=== PATIENT | female | born 1940 | race Caucasian/White ===

== ENCOUNTER 2023-06-10 18:58 | Inpatient (IN) | payer OTHER, SELFPAY ==
[2023-06-10] VITALS (27 sets, daily range): BP systolic 106–135; BP diastolic 56–95; PULSE 87–102; RESP 16–34; TEMP 37.3; O2SAT 78–100
--- NOTE | ~2023-06-10 | CT_ITS ---
EXAMINATION: CT brain wo con DATE: 06/10/2023 20:05 INDICATION: AMS . TECHNIQUE: Computed tomography (CT) of the head was performed without intravenous contrast. The mA wa s adjusted according to patient size. Iterative reconstruction technique was employed. The dose-lengt h product was 1210.67 mGy-cm. COMPARISON: None. FINDINGS: Exam mildly motion limited. No acute intracranial hemorrhage or extra-axial fluid collection. No hydrocephalus, mass, or herniation. No acute ischemic infarct. Unremarkable dural venous sinus attenuation. No acute osseous abnormality. The aerated spaces are clear. Mild atrophy and chronic white matter change. Atherosclerotic intracranial calcification. Focal old b ilateral basal ganglia lacunar infarcts. IMPRESSION: No acute intracranial process. Reviewed, dictated and finalized at location K.
--- NOTE | ~2023-06-10 | CT_ITS ---
EXAMINATION: CT abdomen pelvis wo con DATE: 06/10/2023 19:59 INDICATION: abdominal pain TECHNIQUE: Computed tomography (CT) of the abdomen and pelvis was performed without intravenous contr ast. Automated exposure control and iterative reconstruction technique were employed. The dose-length product was 1531.05 mGy-cm. COMPARISON: None. FINDINGS: Motion artifact in the lungs and upper abdomen. Lower thorax: Septal thickening. Scattered groundglass opacities. Multiple calcified granulomas. Aort ic, mitral, and coronary artery calcifications. Dilated central pulmonary arteries as can be seen wit h pulmonary arterial hypertension. Small hiatal hernia. Mild cardiomegaly. Liver: Normal. Biliary/Gallbladder: Gallbladder is absent. 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 Pancreatic atrophy. Spleen: Normal. Adrenals:No mass. Kidneys: Right renal ectopia. Calcification in the posterior aspect of the right kidney, difficult to measure due to motion artifact. GI tract: No small or large bowel dilation. Appendix not visualized. Diverticulosis without diverticu litis. Asymmetric wall edema/thickening of the distal rectum/anus. Mesentery/Peritoneum: No ascites, mass, or free air. Retroperitoneum: No mass. Atherosclerotic abdominal aortic and/or arterial calcifications. IVC filter . Pelvis: Pelvic organs are within normal limits. Soft Tissues: Broad-based umbilical hernia/diastasis, with mild herniation of fat and small bowel, no obstruction. Bones: No acute osseous finding. Severe degenerative changes in the spine and right hip IMPRESSION: Mild interstitial edema. 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 Distal rectal/anal wall thickening may represent proctitis or a rectal mass. Correlate with physical exam findings and consider referral for proctoscopy. Reviewed, dictated and finalized at location K. IMPRESSION: Mild interstitial edema. 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 Distal rectal/anal wall thickening may represent proctitis or a rectal mass. Co rrelate with physical exam findings and consider referral for proctoscopy.
--- NOTE | ~2023-06-10 | XR_ITS ---
EXAMINATION: XR chest 1V portable Exam Date/Time: 06/10/2023 20:05 CDT HISTORY: tachypnea Comparison: 10/16/2016, CT abdomen and pelvis 06/10/2023. RESULT: Lines, tubes, and devices: None. Lungs and pleura: Low lung volumes. Scattered diffuse reticular opacities. Cardiomediastinal silhouette: Dilated central pulmonary arteries. Cardiomegaly. Other: No acute osseous or upper abdominal finding. IMPRESSION: Mild interstitial edema. Reviewed, dictated and finalized at location K. IMPRESSION: Mild interstitial edema.
--- NOTE | 2023-06-10 19:44 | ECG_ITS ---
Measurements Intervals [place] Rate: 89 P: MO: 0 QRS: -6 QRSD: 102 T: -45 QT: 317 QTc: 386 Interpretive Statements SINUS RHYTHM ATRIAL PREMATURE COMPLEX LOW QRS VOLTAGE IN PRECORDIAL LEADS NONSPECIFIC ST & T-WAVE ABNORMALITY- ANT/INF LEADS BASELINE ARTIFACT- III, AVR, AVL, AVF, V4-V6 BORDERLINE ECG NO PREVIOUS ECG AVAILABLE FOR COMPARISON Electronically Signed On 06-11-2023 6:30:48 CDT by Ray Black D.O.
--- NOTE | 2023-06-10 19:52 | ED.FEMALEGU ---
HPI - Female Genitourinary General Chief complaint: Urogenital-Female Stated complaint: UTI, AMS, BACK PAIN Time Seen by Provider: 06/10/23 19:32 History of Present Illness HPI Narrative: 82-year-old female reports via EMS from [facility] with complaints of abdominal pain and back pain. Patient is a poor historian and unable to identify what is bothering her where other than her abdominal pain and back pain. She screams out in pain when she is touched. Per the report given by EMS, the patient was diagnosed with a UTI today and was sent to the ED for treatment given she is allergic to cephalosporins, fluoroquinolones, and sulfonamides and they were unsure how to treat her. She is currently wearing 2 L of oxygen which she wears at baseline, satting 99 to 100%. The patient is denying chest pain or shortness of breath. Related Data Home Medications Medication Instructions Recorded Confirmed acetaminophen 325 mg tablet 650 mg PO Q6H 06/11/23 06/11/23 amlodipine 5 mg tablet 5 mg PO DAILY 06/11/23 06/11/23 artificial tears solution eye drops 1 drp ophthalmic (eye) BID 06/11/23 06/11/23 atorvastatin 40 mg tablet 40 mg PO HS 06/11/23 06/11/23 bisacodyl 10 mg rectal suppository 10 mg RECTAL DAILY PRN Constipation 06/11/23 06/11/23 (Dulcolax (bisacodyl)) cetirizine 10 mg tablet 10 mg PO DAILY 06/11/23 06/11/23 cholecalciferol (vitamin D3) 25 1,000 mcg PO DAILY 06/11/23 06/11/23 mcg (1,000 unit) tablet furosemide 20 mg tablet 20 mg PO DAILY PRN Weight Gain 06/11/23 06/11/23 furosemide 40 mg tablet 60 mg PO DAILY 06/11/23 06/11/23 hydroxyzine HCl 50 mg tablet 50 mg PO Q6H 06/11/23 06/11/23 magnesium oxide 400 mg (241.3 mg 400 mg PO DAILY 06/11/23 06/11/23 magnesium) tablet melatonin 5 mg tablet 5 mg PO HS 06/11/23 06/11/23 metolazone 5 mg tablet 5 mg PO DAILY 06/11/23 06/11/23 metoprolol tartrate 25 mg tablet 12.5 mg PO DAILY 06/11/23 06/11/23 mirabegron 50 mg tablet,extended 50 mg PO DAILY 06/11/23 06/11/23 release 24 hr (Myrbetriq) multivitamin 1 tablet PO DAILY 06/11/23 06/11/23 omeprazole 20 mg capsule,delayed 20 mg PO DAILY 06/11/23 06/11/23 release potassium chloride 20 mEq 40 meq PO DAILY 06/11/23 06/11/23 tablet,extended release(part/cryst) potassium chloride 20 mEq 80 meq PO DAILY 06/11/23 06/11/23 tablet,extended release(part/cryst) sertraline 25 mg tablet 25 mg PO DAILY 06/11/23 06/11/23 tramadol 50 mg tablet 100 mg PO Q8H pain 06/11/23 06/11/23 trazodone 50 mg tablet 50 mg PO DAILY 06/11/23 06/11/23 warfarin 1 mg tablet 1 mg PO DAILY 06/11/23 06/11/23 Allergies Allergy/AdvReac Type Severity Reaction Status Date / Time TASIA Inhibitors Allergy Unknown Verified 01/26/11 12:04 Cephalosporins Allergy Unknown Verified 07/23/15 09:47 Iodinated Contrast Media Allergy Unknown Verified 09/30/15 15:23 iodine Allergy Unknown Verified 04/11/12 10:50 Iodine and Iodide Containing Allergy Unknown Verified 07/23/15 09:47 Produc levofloxacin Allergy Unknown Verified 01/26/11 12:04 Quinolones Allergy Unknown Verified 10/28/16 12:31 Sulfa (Sulfonamide Allergy Unknown Verified 09/30/15 15:23 Antibiotics) Contrast Media Allergy Unknown Uncoded 10/16/16 15:14 Review of Systems Review of Systems: CONSTITUTIONAL: Denies fever, chills EYES: Denies visual changes, redness, or discharge. ENT: Denies rhinorrhea, congestion, sore throat, or otalgia. CARDIOVASCULAR: Denies chest pain, palpitations, or edema. RESPIRATORY: Denies cough or dyspnea. GASTROINTESTINAL: See HPI GENITOURINARY: Denies dysuria or hematuria. SKIN: Denies rash or itching. MUSCULOSKELETAL: See HPI NEUROLOGIC: Denies headache, numbness, dizziness, or weakness. PSYCHIATRIC: Denies anxiety or depression. [facility] Past Medical History Medical History Benign essential hypertension Chronic GERD Chronic pain disorder Chronic respiratory failure with hypoxia, on home O2 therapy Diabetes 1.5, ma
--- NOTE | 2023-06-10 20:04 | PC.NURSE ---
went to imaging
[2023-06-10] MEDS: MORPHINE SULFATE (*CRX) 2 MG/ML INJ IV PUSH ×2 (20:12→22:00)
[2023-06-10] MEDS: SODIUM CHLORIDE 0.9% IV 1,000 ML 999 ML IV CONT (20:12)
--- NOTE | 2023-06-10 20:23 | PC.NURSE ---
wound culture sent by isaura. wound is on the Left butt cheek
--- NOTE | 2023-06-10 20:25 | PC.NURSE ---
Left cheek wound is very odorous and dry blood is noted. stage 4 and is cover with a dressing and dated
[2023-06-10 21:19] LABS: Appearance Urine Clear (Clear); Bacteria Urine 1+ /hpf; Bilirubin Urine Negative (Negative); Blood Urine Negative (Negative); Color Urine Yellow (Yellow); Glucose Urine UA Negative (Negative); Ketones Urine Trace mg/dL (Negative); Leukocyte Esterase Ur 3+ LEU/UL (Negative); Nitrate Urine Negative (Negative); Non Pathogenic Casts 0-2; Protein Urine Negative (Negative); RBC Urine 0-2 /hpf (0-2); Specific Grav Ur 1.013 (1.001-1.035); Squamous Epithelial Cell Urine None seen /hpf (Few); Urobilinogen Urine 0.2 mg/dL (<2.0); WBC Urine 21-50 /hpf; pH Urine 8.5 (5.0-9.0)
[2023-06-10 21:22] LABS: Add Urine Microscopic? YES
[2023-06-10 21:32] LABS: INR 1.5
--- NOTE | 2023-06-10 21:36 | PC.NURSE ---
pharm called for zoysn. need creatinine
[2023-06-10 21:39] LABS: Basophils Absolute Auto 0.1 K/mm3 (0.0-0.1); Basophils Percent Auto 0.5 % (0.2-1.2); Eosinophils Percent Auto 0.1 % (0-4.4); Hematocrit 37.2 % (37.0-47.0); Hemoglobin 12.6 g/dL (12.0-15.0); Immature Granulocyte Absolute 0.12 K/mm3 (0.00-0.031); Immature Granulocyte Percent A 0.8 % (0-0.5); Lymphocytes Absolute Auto 0.73 K/mm3 (0.9-3.2); Lymphocytes Percent Auto 4.8 % (18.3-44.2); Mean Corpuscular HGB Conc 33.9 g/dl (32-36); Mean Corpuscular Hemoglobin 26.6 pg (26-34); Mean Corpuscular Volume 78.5 fl (80-100); Mean Platelet Volume 8.8 fl (7.4-10.4); Monocytes Absolute Auto 1.4 K/mm3 (0.1-0.6); Monocytes Percent Auto 9.3 % (2.6-8.5); Neutrophils Absolute Auto 12.7 K/mm3 (1.3-6.7); Neutrophils Percent Auto 84.5 % (45.5-73.1); Platelet Count Result 354 k/mm3 (150-375); Red Blood Count 4.74 M/mm3 (4.2-5.4); White Blood Count 15.1 K/mm3 (4.5-10.0)
[2023-06-10 21:45] LABS: Lactic Acid Reflex 2.8 mmol/L (0.7-2.0)
[2023-06-10 21:49] LABS: Magnesium 1.1 mg/dL (1.6-2.3)
[2023-06-10 21:51] LABS: Ovalocytes 1+ (NORMAL); Platelet Estimate Adequate (Adequate)
[2023-06-10 21:52] LABS: Schistocytes None Seen (NORMAL); Target Cells 1+ (NORMAL)
[2023-06-10 21:59] LABS: Troponin I 0.015 ng/mL (0.000-0.034)
[2023-06-10] MEDS: PIPERACILLN/TAZ 3.375GM/NS50ML 3.375 GM/50 ML BAG IVPB (22:01)
[2023-06-10 22:10] LABS: Alanine Aminotransferase 20 U/L (6-35); Alkaline Phosphatase 105 U/L (38-126); Anion Gap 7 mmol/L (8-16); Aspartate Amino Transferase 41 U/L (14-36); Bilirubin,Total 1.9 mg/dL (0.2-1.3); Blood Urea Nitrogen 29 mg/dL (7-17); Calcium 8.6 mg/dL (8.4-10.2); Carbon Dioxide 27 mmol/L (22-30); Chloride 92 mmol/L (98-107); Estimated Glomerular Filt Rate > 60; Glucose 105 mg/dL (65-110); Lipase 103 U/L (23-300); Potassium 3.9 mmol/L (3.4-5.0); Sodium 126 mmol/L (137-145)
--- NOTE | 2023-06-10 22:15 | PC.NURSE ---
iv atx are infusing
[2023-06-10] MEDS: MAGNESIUM SULF 1 GM/D5W 100 ML 1 GM/100 ML BAG IVPB (23:05)
--- NOTE | 2023-06-10 23:05 | ECG_ITS ---
Measurements Intervals [place] Rate: 93 P: MO: 0 QRS: -9 QRSD: 102 T: -60 QT: 322 QTc: 401 Interpretive Statements SINUS RHYTHM ATRIAL COUPLET LOW QRS VOLTAGE IN PRECORDIAL LEADS BORDERLINE ST-T WAVE ABNORMALITY- DIFFUSE LEADS BASELINE ARTIFACT- I, II, III, AVR, AVL, AVF, V1-V6 BORDERLINE ECG COMPARED TO ECG 06/10/2023 22:53:09 NO SIGNIFICANT CHANGES Electronically Signed On 06-11-2023 6:32:44 CDT by Ray Black D.O.
[2023-06-11] VITALS (10 sets, daily range): BP systolic 113–131; BP diastolic 67–75; PULSE 66–89; RESP 13–18; TEMP 36.5–37.1; O2SAT 94–100; BMI 38.0
--- NOTE | 2023-06-11 00:28 | PC.NURSE ---
julián just came up from pharm
[2023-06-11 00:34] LABS: Reflex Lactic Acid Yes or No Add Lactic
[2023-06-11] MEDS: SODIUM CHLORIDE 0.9% IV 1,000 ML 100 ML IV CONT ×2 (00:36→21:39)
--- NOTE | 2023-06-11 01:04 | PC.NURSE ---
report called to dinorah
[2023-06-11 07:25] LABS: Anion Gap 4 mmol/L (8-16); Blood Urea Nitrogen 29 mg/dL (7-17); Calcium 8.7 mg/dL (8.4-10.2); Carbon Dioxide 34 mmol/L (22-30); Chloride 91 mmol/L (98-107); Estimated Glomerular Filt Rate 60; Glucose 151 mg/dL (65-110); Potassium 3.8 mmol/L (3.4-5.0); Sodium 129 mmol/L (137-145)
--- NOTE | 2023-06-11 07:56 | PM.IMHP ---
H&P: HPI History of Present Illness Date/Time: 06/11/23 01:00 Chief Complaint: UTI, back pain Narrative: 82-year-old female with past medical history chronic pain syndrome, CHF, anxiety, hypertension, GERD and chronic hypoxic respiratory failure who presented to the ER from [facility] via EMS due to UTI and back pain. Patient had recent UA obtained from the [facility] which grew out E coli. They did not know what antibiotics to place the patient on due to her having a history of allergy to cephalosporins, sulfa and fluoroquinolones. Subsequently they referred her to the ER for treatment. The patient received a dose of Zosyn in the ER without having any allergic reaction. Evidently in the ER the family members also reported the patient had a prior allergy to a dose of Zosyn as well but this was not documented in the ER physicians documentation and again patient did not have a reaction in the ER. The patient is is a poor historian and only reports that she hurts all over. However when I asked the patient at the time of my evaluation where she hurt she actually was designed any specific pain at. When I asked her if the large decubitus ulcer on her left buttock was hurting her she actually did not report pain then. She has been afebrile since presentation. She denies any nausea or vomiting. She is only alert oriented to person and year. She thinks the month is October. She knew that she was in the hospital but could not name the facility initially. Her son had came to the ER and told the ER physician the patient has lost 30 lb in the last month. She has become mostly bedbound over the last 1-2 months. She has chronic hypoxic respiratory failure. She does have a history of prior PEs. She has reportedly had multiple PEs in the past. Her INR at the [facility] 2 days ago was 2.5 but on presentation to the ER today was subtherapeutic. Review of Systems Review of Systems: 12 point review of systems was attempted but what is limited due to patient's distress and confusion. 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 JULIA on CPAP Surgical History Surgical History History of appendectomy History of bilateral knee replacement 1 in 1993 1 in 2005 History of tonsillectomy and adenoidectomy Hx of cholecystectomy S/P insertion of IVC (inferior vena caval) filter 2005 Family History Family History Father Family history of diabetes mellitus in first degree relative Family history of heart disease in male family member before age 55 Mother Carcinoma of colon Social History Social History Smoking status: Unknown if ever smoked Alcohol intake: never Substance use: never Substance use type: does not use Lack of Transportation: No Lack of Food: Never True Current Housing: I Have Housing Concerned About Future Housing: No Difficulty Paying Gas/Electric Bills: No Difficulty Paying for Meds: No Currently Unemployed: No Education: Don't Know Difficulty w/ Childcare or Family Care: No Spiritual care concerns: No Meds Home Medications and Allergies Home Medications Medication Instructions Recorded Confirmed Type acetaminophen 325 mg tablet 650 mg PO Q6H 06/11/23 06/11/23 History amlodipine 5 mg tablet 5 mg PO DAILY 06/11/23 06/11/23 History artificial tears solution eye drops 1 drp ophthalmic (eye) BID 06/11/23 06/11/23 History atorvastatin 40 mg tablet 40 mg PO HS 06/11/23 06/11/23 History bisacodyl 10 mg rectal suppository
[2023-06-11 08:05] LABS: Anion Gap 7 mmol/L (8-16); Blood Urea Nitrogen 27 mg/dL (7-17); Calcium 8.6 mg/dL (8.4-10.2); Carbon Dioxide 32 mmol/L (22-30); Chloride 90 mmol/L (98-107); Estimated Glomerular Filt Rate > 60; Glucose 124 mg/dL (65-110); Potassium 3.5 mmol/L (3.4-5.0); Sodium 129 mmol/L (137-145)
--- NOTE | 2023-06-11 10:38 | PC.NURSE ---
Lab orders per physician order sheet verified per main lab. Order for CBC, Magnesium, PT/INR in the chart under Physician orders faxed per assistant casino shift manager. Lab is aware to draw orders.
[2023-06-11] MEDS: MORPHINE SULFATE (*CRX) 4 MG/ML INJ IV PUSH (10:48)
[2023-06-11] MEDS: SILVERGEL (ELTA) 45 ML 1 APPLIC TOPICAL (10:49)
[2023-06-11 11:05] LABS: INR 1.7; Prothrombin Time 20.6 Seconds (11.1-14.7)
[2023-06-11 11:07] LABS: Hematocrit 35.1 % (37.0-47.0); Hemoglobin 11.6 g/dL (12.0-15.0); Mean Corpuscular Hemoglobin 27.2 pg (26-34); Mean Corpuscular Volume 82.2 fl (80-100); Mean Platelet Volume 9.1 fl (7.4-10.4); Platelet Count Result 352 k/mm3 (150-375); Red Blood Count 4.27 M/mm3 (4.2-5.4); Red Cell Distribution Width 17.1 % (11.5-14.5); White Blood Count 13.4 K/mm3 (4.5-10.0)
--- NOTE | 2023-06-11 11:29 | PM.IMPN ---
Progress Note: A&P Assessment and Plan (1) Decubitus ulcer, unstageable with infection: Code(s): L89.95 - Pressure ulcer of unspecified site, unstageable; L08.9 - Local infection of the skin and subcutaneous tissue, unspecified Status: Acute Assessment and Plan: The patient has a known decubitus ulcer that is now infected. The wound was foul smelling. Wound cultures have been sent. Blood cultures are pending. WBC better. General surgery consult for possible debridement of the unstageable wound on the left buttock with large eschar. Pressure relief. Air mattress. (2) UTI (urinary tract infection): Qualifiers: Hematuria presence: without hematuria Urinary tract infection type: acute cystitis Qualified Code(s): N30.00 - Acute cystitis without hematuria Code(s): N39.0 - Urinary tract infection, site not specified Status: Acute Assessment and Plan: The patient has a known E coli UTI.? Sensitivities are not known for the organism.? Results were sent in from the senior care.? Patient has multiple drug allergies listed.? Her exact reaction sees medications are unknown.? Zosyn started and patient is currently tolerating this.? Will continue antibiotic therapy.? Blood cultures are pending.? Urine cultures are pending. (3) Hyponatremia: Code(s): E87.1 - Hypo-osmolality and hyponatremia Status: Acute Assessment and Plan: The patient has hyponatremia at 126.? The patient's labs at the senior care also demonstrated hyponatremia with sodium 129.?With IV fluid hydration, sodium better. Lasix on hold today. Will resume lasix tomorrow. 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 She received 1 g of magnesium sulfate in the ER.? Repeat Mag pending (5) Chronic respiratory failure with hypoxia, on home O2 therapy: Code(s): J96.11 - Chronic respiratory failure with hypoxia; Z99.81 - Dependence on supplemental oxygen Status: Acute Assessment and Plan: Stable on 1.5-2L/min. Continue the same (6) Chronic pain disorder: Code(s): G89.4 - Chronic pain syndrome Status: Acute Assessment and Plan: Resume Tramadol. (7) Severe protein-calorie malnutrition: Code(s): E43 - Unspecified severe protein-calorie malnutrition Status: Acute Assessment and Plan: The family reports patient has had a 30 lb weight loss over the last month.?Patient has had failure to thrive, weight loss and is mostly bedbound.? Will consult dietitian for supplement recommendations.? (8) Subtherapeutic international normalized ratio (INR): Code(s): R79.1 - Abnormal coagulation profile Status: Acute Assessment and Plan: Patient does have a subtherapeutic INR.? According to the senior care records patient is only getting 1 mg of Coumadin daily.? Will give the patient 3 mg of Coumadin daily and monitor INR daily.? The patient does have an IVC filter in place. 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 Code status - DNR Subjective Date/time seen: 06/11/23 11:29 Interval history: 82yo female with chronic pain syndrome, CHF, anxiety, HTN, GERD and chronic hypoxic respiratory failure who presented to the ER from [facility] via EMS due to UTI and back pain.? Patient has chronic right hip and shoulder pain. Pain controlled with tramadol Q8h. No CP or SOB. Pain today mostly buttock area. Wear O2 at 1.5-2L chronically. Exam Narrative: AF 98.7 117/75 83 16 98% ra Gen - NARD Ches
[2023-06-11 11:53] LABS: Magnesium 1.8 mg/dL (1.6-2.3)
[2023-06-11] MEDS: PIPERACILLN/TAZ 3.375GM/NS50ML 3.375 GM/50 ML BAG IVPB (12:39)
[2023-06-11] MEDS: MAGNESIUM OXIDE 400 MG TABLET PO (12:40)
[2023-06-11] MEDS: hydrOXYzine HCL 25 MG TABLET 50 MG PO ×2 (12:40→18:10)
[2023-06-11] MEDS: MULTIVITAMINS THERAPEUTIC TAB (*BKC) 1 TABLET PO (12:40)
[2023-06-11] MEDS: CHOLECALCIFEROL 1,000 UNITS TABLET 1000 UNITS PO (12:40)
[2023-06-11] MEDS: amLODIPine BESYLATE 5 MG TABLET PO (12:41)
[2023-06-11] MEDS: SERTRALINE HCL 25 MG TABLET PO (12:41)
[2023-06-11] MEDS: ARTIFICIAL TEARS OPHTH SOLN 15 ML BOTTLE 1 DROP EACH EYE ×2 (12:41→18:10)
[2023-06-11] MEDS: MIRABEGRON 50 MG ER TABLET PO (12:41)
[2023-06-11] MEDS: METOPROLOL TARTRATE 12.5 MG TABLET PO (12:48)
[2023-06-11] MEDS: traMADol HCL (*CRX) 50 MG TABLET 100 MG PO ×2 (13:02→22:55)
--- NOTE | 2023-06-11 15:30 | WPDCN ---
Assessment and Plan Assessment and plan (1) Decubitus ulcer, unstageable with infection: Code(s): L89.95 - Pressure ulcer of unspecified site, unstageable; L08.9 - Local infection of the skin and subcutaneous tissue, unspecified Status: Acute Assessment and Plan: Patient has a likely stage II sacral decubitus ulcer. The necrotic tissues for the superficial and will likely respond to local wound care management. There is not seem to be extension of the necrotic process in the subcutaneous tissues. Her issues for of infection most likely related to her UTI rather than the sacral decubitus ulcer. Continue recommendations and offloading pressure on the ulcer as per the wound care nurses. Does not need to have surgical debridement of the wound. Continue antibiotics as per hospitalist. HPI Data of Consult Date/Time: 06/11/23 15:30 Requesting Physician: Ronna Pires DO Primary Care Provider: Eric Denis MD Consult Narrative Reason for consult: sacral decubitus ulcer Narrative: Gosia Hatch is a 82 year old female admitted to the hospital with UTI. Apparently she is from a [facility] and is mostly bed ridden. She has had a chronic wound on her sacrum for quite some time. She has been seen by the wound care nurses and recommendation is to apply Dakin's dressings and silver gel onto the wound. Her source of infection is more likely to be her UTI rather than the decubitus ulcer. Review of Systems Review of Systems: The remainder of the review of systems to include constitutional, HEENT, cardiovascular, respiratory, GI, , integumentary, musculoskeletal, endocrine, immunologic, hematologic, psychiatric, and neurologic are all negative except for which is mentioned above in the HPI. 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 of anticoagulants JULIA on CPAP Surgical History Surgical History History of appendectomy History of bilateral knee replacement 1 in 1993 1 in 2005 History of tonsillectomy and adenoidectomy Hx of cholecystectomy S/P insertion of IVC (inferior vena caval) filter 2005 Family History Family History Father Family history of diabetes mellitus in first degree relative Family history of heart disease in male family member before age 55 Mother Carcinoma of colon Social History Social History Smoking status: Unknown if ever smoked Alcohol intake: never Substance use: never Substance use type: does not use Lack of Transportation: No Lack of Food: Never True Current Housing: I Have Housing Concerned About Future Housing: No Difficulty Paying Gas/Electric Bills: No Difficulty Paying for Meds: No Currently Unemployed: No Education: Don't Know Difficulty w/ Childcare or Family Care: No Spiritual care concerns: No Meds Home Medications and Allergies Home Medications Medication Instructions Recorded Confirmed Type acetaminophen 325 mg tablet 650 mg PO Q6H 06/11/23 06/11/23 History amlodipine 5 mg tablet 5 mg PO DAILY 06/11/23 06/11/23 History artificial tears solution eye drops 1 drp ophthalmic (eye) BID 06/11/23 06/11/23 History atorvastatin 40 mg tablet 40 mg PO HS 06/11/23 06/11/23 History bisacodyl 10 mg rectal suppository 10 mg RECTAL DAILY PRN Constipation 06/11/23 06/11/23 History (Dulcolax (bisacodyl)) cetirizine 10 mg tablet 10 mg PO DAILY 06/11/23 06/11/23 History cholecalciferol (vitamin D3) 25 1,000 mcg PO DAILY 06/11/23 06/11/23 History mcg (1,000 unit) tablet
[2023-06-11] MEDS: WARFARIN (*PBKC) 3 MG TABLET PO (18:10)
[2023-06-11 18:12] LABS: Anion Gap 9 mmol/L (8-16); Blood Urea Nitrogen 25 mg/dL (7-17); Calcium 8.3 mg/dL (8.4-10.2); Carbon Dioxide 25 mmol/L (22-30); Chloride 90 mmol/L (98-107); Estimated CRCL calculation 68 ml/min; Estimated Glomerular Filt Rate > 60; Glucose 136 mg/dL (65-110); Potassium 3.5 mmol/L (3.4-5.0); Sodium 124 mmol/L (137-145)
--- NOTE | 2023-06-11 18:28 | PC.NURSE ---
Pt is A&O to person. Pt reports having chronic pain. Pt has hx of torn rotator cuff. Pt has wound on bottom with yeast around area. Pt has wound in crevice of skin fold on abdomen. Pt lost IV access and will have a midline placed at 1999. Pt is visibly in distress when pt is moved. Pt was unable to participate and contribute in plan of care. Will continue to monitor pt.
[2023-06-11] MEDS: MELATONIN 5 MG TABLET PO (21:29)
[2023-06-11] MEDS: ATORVASTATIN 40 MG TABLET PO (21:29)
[2023-06-11] MEDS: traZODone HCL 50 MG TABLET PO (21:29)
[2023-06-12] VITALS (9 sets, daily range): BP systolic 109–144; BP diastolic 52–80; PULSE 70–78; RESP 18–22; TEMP 36.5–37.1; O2SAT 94–100
[2023-06-12] MEDS: PIPERACILLN/TAZ 3.375GM/NS50ML 3.375 GM/50 ML BAG IVPB ×3 (01:42→12:50)
[2023-06-12 07:27] LABS: Basophils Absolute Auto 0.1 K/mm3 (0.0-0.1); Basophils Percent Auto 0.5 % (0.2-1.2); Eosinophils Absolute Auto 0.4 K/mm3 (0-0.3); Eosinophils Percent Auto 3.8 % (0-4.4); Hematocrit 33.5 % (37.0-47.0); Hemoglobin 11.1 g/dL (12.0-15.0); Immature Granulocyte Absolute 0.06 K/mm3 (0.00-0.031); Immature Granulocyte Percent A 0.6 % (0-0.5); Lymphocytes Absolute Auto 0.58 K/mm3 (0.9-3.2); Lymphocytes Percent Auto 5.8 % (18.3-44.2); Mean Corpuscular HGB Conc 33.1 g/dl (32-36); Mean Corpuscular Volume 81.5 fl (80-100); Mean Platelet Volume 8.9 fl (7.4-10.4); Monocytes Absolute Auto 0.8 K/mm3 (0.1-0.6); Monocytes Percent Auto 7.8 % (2.6-8.5); Neutrophils Absolute Auto 8.2 K/mm3 (1.3-6.7); Neutrophils Percent Auto 81.5 % (45.5-73.1); Platelet Count Result 295 k/mm3 (150-375); Red Blood Count 4.11 M/mm3 (4.2-5.4); Red Cell Distribution Width 16.4 % (11.5-14.5)
[2023-06-12 07:28] LABS: Alanine Aminotransferase 16 U/L (6-35); Albumin Level 2.6 g/dL (3.5-5.1); Alkaline Phosphatase 95 U/L (38-126); Anion Gap 2 mmol/L (8-16); Aspartate Amino Transferase 26 U/L (14-36); Bilirubin,Total 1.1 mg/dL (0.2-1.3); Blood Urea Nitrogen 21 mg/dL (7-17); Calcium 8.2 mg/dL (8.4-10.2); Carbon Dioxide 32 mmol/L (22-30); Chloride 91 mmol/L (98-107); Estimated CRCL calculation 68 ml/min; Estimated Glomerular Filt Rate > 60; Glucose 138 mg/dL (65-110); Magnesium 1.5 mg/dL (1.6-2.3); Potassium 2.9 mmol/L (3.4-5.0); Sodium 125 mmol/L (137-145)
[2023-06-12 07:31] LABS: Lactic Acid Reflex 1.3 mmol/L (0.7-2.0)
[2023-06-12 08:01] LABS: Prothrombin Time 24.1 Seconds (11.1-14.7)
[2023-06-12] MEDS: POTASSIUM CHLORIDE 20 MEQ PACKET (FOR LIQUID) 40 MEQ PO (09:04)
[2023-06-12] MEDS: MAGNESIUM SULF 2 GM/WATER 50ML 2 GM/50 ML BAG IVPB (09:04)
[2023-06-12] MEDS: ARTIFICIAL TEARS OPHTH SOLN 15 ML BOTTLE 1 DROP EACH EYE ×2 (09:05→18:01)
[2023-06-12] MEDS: METOPROLOL TARTRATE 12.5 MG TABLET PO (09:05)
[2023-06-12] MEDS: MAGNESIUM OXIDE 400 MG TABLET PO (09:05)
[2023-06-12] MEDS: SERTRALINE HCL 25 MG TABLET PO (09:05)
[2023-06-12] MEDS: MULTIVITAMINS THERAPEUTIC TAB (*BKC) 1 TABLET PO (09:05)
[2023-06-12] MEDS: amLODIPine BESYLATE 5 MG TABLET PO (09:05)
[2023-06-12] MEDS: CHOLECALCIFEROL 1,000 UNITS TABLET 1000 UNITS PO (09:05)
[2023-06-12] MEDS: PANTOPRAZOLE 40 MG TABLET PO (09:06)
[2023-06-12] MEDS: MIRABEGRON 50 MG ER TABLET PO (09:06)
[2023-06-12] MEDS: SILVERGEL (ELTA) 45 ML 1 APPLIC TOPICAL (09:07)
[2023-06-12] MEDS: LORATADINE 10 MG TABLET PO (09:07)
[2023-06-12] MEDS: hydrOXYzine HCL 25 MG TABLET 50 MG PO ×2 (12:52→18:04)
[2023-06-12] MEDS: traMADol HCL (*CRX) 50 MG TABLET 100 MG PO (13:45)
[2023-06-12] MEDS: MORPHINE SULFATE (*CRX) 4 MG/ML INJ IV PUSH (13:46)
--- NOTE | 2023-06-12 14:44 | PM.IMPN ---
Progress Note: A&P Assessment and Plan (1) Decubitus ulcer, unstageable with infection: Code(s): L89.95 - Pressure ulcer of unspecified site, unstageable; L08.9 - Local infection of the skin and subcutaneous tissue, unspecified Status: Acute Assessment and Plan: The patient has a known decubitus ulcer that is now infected. The wound was foul smelling. Wound cultures pending Blood cultures NGTD. WBC better. General surgery consulted and appreciate their input. Contiue local wound care management.?Not felt to be infectious. Continue offloading pressure on the ulcer as per the wound care nurses.? Does not need to have surgical debridement of the wound.? Continue Air mattress. (2) UTI (urinary tract infection): Qualifiers: Hematuria presence: without hematuria Urinary tract infection type: acute cystitis Qualified Code(s): N30.00 - Acute cystitis without hematuria Code(s): N39.0 - Urinary tract infection, site not specified Status: Acute Assessment and Plan: The patient has a known E coli UTI.? Sensitivities are not known for the organism.? Results were sent in from the shelter.? Zosyn started.? BCx NGTD. UCx Ecoli that is pansensitive. Narrow abx and plan discharge tomorrow. (3) Hyponatremia: Code(s): E87.1 - Hypo-osmolality and hyponatremia Status: Acute Assessment and Plan: The patient has hyponatremia at 126.? The patient's labs at the shelter also demonstrated hyponatremia with sodium 129.?With IV fluid hydration, sodium was better but now worse. Stop IV fluids. Resume Lasix. Follow Na levels. 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 She received 1 g of magnesium sulfate in the ER.? Mag 1.5 today and replacement ordered again. Follow (5) Chronic respiratory failure with hypoxia, on home O2 therapy: Code(s): J96.11 - Chronic respiratory failure with hypoxia; Z99.81 - Dependence on supplemental oxygen Status: Acute Assessment and Plan: Stable on 1.5-2L/min. Continue the same (6) Chronic pain disorder: Code(s): G89.4 - Chronic pain syndrome Status: Acute Assessment and Plan: Pain controlled. Continue Tramadol. (7) Severe protein-calorie malnutrition: Code(s): E43 - Unspecified severe protein-calorie malnutrition Status: Acute Assessment and Plan: The family reports patient has had a 30 lb weight loss over the last month.?Patient has had failure to thrive, weight loss and is mostly bedbound.? Dietary supplements ordered (8) Subtherapeutic international normalized ratio (INR): Code(s): R79.1 - Abnormal coagulation profile Status: Acute Assessment and Plan: Patient does have a subtherapeutic INR.? According to the shelter records patient is only getting 1 mg of Coumadin daily.? She was given 3 mg of Coumadin daily.? The patient does have an IVC filter in place. INR now at 2.0 so will change back to Coumadin 1mg daily. 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 Code status - DNR Subjective Date/time seen: 06/12/23 14:44 Interval history: 82yo female with chronic pain syndrome, CHF, anxiety, HTN, GERD and chronic hypoxic respiratory failure who presented to the ER from [facility] via EMS due to UTI and back pain.? Back pain is better. No Cp or SOB. No n/v. Eating well. She wears O2 at 1.5-2L chronically. Exam Narrative: AF 98.7 127/52 70 22 97% 1L Gen - NARD
[2023-06-12] MEDS: WARFARIN (*PBKC) 1 MG TABLET PO (18:01)
[2023-06-12] MEDS: FUROSEMIDE 20 MG TABLET 60 MG PO (18:03)
[2023-06-12] MEDS: AMOXICILLIN/CLAVULANATE K 875-125 MG TAB 1 TABLET PO (20:17)
[2023-06-12] MEDS: MELATONIN 5 MG TABLET PO (20:17)
[2023-06-12] MEDS: traZODone HCL 50 MG TABLET PO (20:17)
[2023-06-12] MEDS: ATORVASTATIN 40 MG TABLET PO (20:18)
[2023-06-13] VITALS (7 sets, daily range): BP systolic 112–138; BP diastolic 61–64; PULSE 71–78; RESP 12–18; TEMP 36.1–36.7; O2SAT 92–96
[2023-06-13 02:00] LABS: Creatinine Urine 9.2 mg/dL
[2023-06-13 02:03] LABS: Sodium Urine Random 44 meq/L
[2023-06-13 07:24] LABS: INR 2.1; Prothrombin Time 24.8 Seconds (11.1-14.7)
[2023-06-13] MEDS: MULTIVITAMINS THERAPEUTIC TAB (*BKC) 1 TABLET PO (08:38)
[2023-06-13] MEDS: ARTIFICIAL TEARS OPHTH SOLN 15 ML BOTTLE 1 DROP EACH EYE ×2 (08:38→16:53)
[2023-06-13] MEDS: amLODIPine BESYLATE 5 MG TABLET PO (08:39)
[2023-06-13] MEDS: SERTRALINE HCL 25 MG TABLET PO (08:39)
[2023-06-13] MEDS: CHOLECALCIFEROL 1,000 UNITS TABLET 1000 UNITS PO (08:39)
[2023-06-13] MEDS: POTASSIUM CHLORIDE 20 MEQ ER TABLET 80 MEQ PO (08:39)
[2023-06-13] MEDS: MAGNESIUM OXIDE 400 MG TABLET PO (08:39)
[2023-06-13] MEDS: FUROSEMIDE 20 MG TABLET 60 MG PO (08:39)
[2023-06-13] MEDS: METOPROLOL TARTRATE 12.5 MG TABLET PO (08:39)
[2023-06-13] MEDS: MIRABEGRON 50 MG ER TABLET PO (08:39)
[2023-06-13] MEDS: SILVERGEL (ELTA) 45 ML 1 APPLIC TOPICAL (08:40)
[2023-06-13] MEDS: PANTOPRAZOLE 40 MG TABLET PO (08:40)
[2023-06-13] MEDS: LORATADINE 10 MG TABLET PO (08:44)
[2023-06-13] MEDS: AMOXICILLIN/CLAVULANATE K 875-125 MG TAB 1 TABLET PO ×2 (09:55→20:27)
[2023-06-13] MEDS: hydrOXYzine HCL 25 MG TABLET 50 MG PO ×2 (12:59→16:53)
[2023-06-13] MEDS: traMADol HCL (*CRX) 50 MG TABLET 100 MG PO (13:00)
--- NOTE | 2023-06-13 14:00 | PM.DS ---
DS: Admitting Diagnosis Discharge Date 06/13/23 Admitting Diagnosis UTI and back pain DS: Discharge Diagnosis Discharge Diagnosis (1) Decubitus ulcer, unstageable with infection: Code(s): L89.95 - Pressure ulcer of unspecified site, unstageable; L08.9 - Local infection of the skin and subcutaneous tissue, unspecified Status: Acute (2) UTI (urinary tract infection): Qualifiers: Hematuria presence: without hematuria Urinary tract infection type: acute cystitis Qualified Code(s): N30.00 - Acute cystitis without hematuria Code(s): N39.0 - Urinary tract infection, site not specified Status: Acute (3) Hyponatremia: Code(s): E87.1 - Hypo-osmolality and hyponatremia Status: Acute (4) Hypomagnesemia: Code(s): E83.42 - Hypomagnesemia Status: Acute (5) Chronic respiratory failure with hypoxia, on home O2 therapy: Code(s): J96.11 - Chronic respiratory failure with hypoxia; Z99.81 - Dependence on supplemental oxygen Status: Acute (6) Chronic pain disorder: Code(s): G89.4 - Chronic pain syndrome Status: Acute (7) Severe protein-calorie malnutrition: Code(s): E43 - Unspecified severe protein-calorie malnutrition Status: Acute (8) Subtherapeutic international normalized ratio (INR): Code(s): R79.1 - Abnormal coagulation profile Status: Acute (9) 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 Hospital Course: The patient presents with back pain and a known UTI. She has a known decubitus ulcer that initially thought to be infected.? The wound was foul smelling. Wound culture showing mixed bacterial joellen. Blood cultures NGTD.? WBC was 15K before normalizing. General surgery was consulted anddid not feel the decubitus ulcer was infected or that it needed debridement. Counfaviola car RN was consulted and we continued local wound care management.?Specialty mattress to help with offloading pressure on the ulcer. The patient has a known E coli UTI.? UCx also growing EColi that was schneider-sensitive.? Zosyn started but changed to oral antibiotics. The patient had hyponatremia at 126.? [facility] also demonstrated hyponatremia with sodium 129.?With IV fluid hydration, sodium was better but then worsened. IV fluids. Resume Lasix. Follow Na levels. 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 She received 1 g of magnesium sulfate in the ER.? Mag 1.5 today and replacement ordered again. Follow (5) Chronic respiratory failure with hypoxia, on home O2 therapy: ?Code(s): J96.11 - Chronic respiratory failure with hypoxia; Z99.81 - Dependence on supplemental oxygen ?Status:?Acute ?Assessment and Plan: Stable on 1.5-2L/min. Continue the same (6) Chronic pain disorder: ?Code(s): G89.4 - Chronic pain syndrome ?Status:?Acute ?Assessment and Plan: Pain controlled. Continue Tramadol. (7) Severe protein-calorie malnutrition: ?Code(s): E43 - Unspecified severe protein-calorie malnutrition ?Status:?Acute ?Assessment and Plan: The family reports patient has had a 30 lb weight loss over the last month.?Patient has had failure to thrive, weight loss and is mostly bedbound.? Dietary supplements ordered (8) Subtherapeutic international normalized ratio (INR): ?Code(s): R79.1 - Abnormal coagulation profile ?Status:?Acute ?Assessment and Plan: Patient does have a subtherapeutic INR.? Accord
[2023-06-13 14:41] LABS: Anion Gap 6 mmol/L (8-16); Blood Urea Nitrogen 16 mg/dL (7-17); Calcium 8.2 mg/dL (8.4-10.2); Carbon Dioxide 33 mmol/L (22-30); Chloride 86 mmol/L (98-107); Estimated CRCL calculation 59 ml/min; Estimated Glomerular Filt Rate > 60; Glucose 158 mg/dL (65-110); Magnesium 1.7 mg/dL (1.6-2.3); Potassium 2.9 mmol/L (3.4-5.0); Sodium 125 mmol/L (137-145)
--- NOTE | 2023-06-13 15:45 | PM.IMPN ---
Progress Note: A&P Assessment and Plan (1) Decubitus ulcer, unstageable with infection: Code(s): L89.95 - Pressure ulcer of unspecified site, unstageable; L08.9 - Local infection of the skin and subcutaneous tissue, unspecified Status: Acute Assessment and Plan: The patient has a known decubitus ulcer. There was concern it might be infected with a foul smell. Wound cultures growing mixed organisms Blood cultures NGTD. WBC normal. General surgery consulted and appreciate their input. They did not feel the wound was infected or that it needed surgical debridement.? Continue local wound care management.?Continue offloading pressure on the ulcer with Air mattress. (2) UTI (urinary tract infection): Qualifiers: Hematuria presence: without hematuria Urinary tract infection type: acute cystitis Qualified Code(s): N30.00 - Acute cystitis without hematuria Code(s): N39.0 - Urinary tract infection, site not specified Status: Acute Assessment and Plan: The patient with known E coli UTI.? Sensitivities are not known for the organism.? Zosyn started.? BCx NGTD. UCx here growing Ecoli that is pansensitive. Narrow abx and plan discharge tomorrow. (3) Hyponatremia: Code(s): E87.1 - Hypo-osmolality and hyponatremia Status: Acute Assessment and Plan: The patient has hyponatremia at 126.? The patient's labs at the shelter also demonstrated hyponatremia with sodium 129.?With IV fluid hydration, sodium was better but now worse. IV fluids stopped. Lasix resumed. Mimi 44 but no diuretics now. Follow Na levels. Add NaCl tablets. 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 She received 1 g of magnesium sulfate in the ER.? Mag 1.7 today and replacement ordered again. Continue oral Mag Follow (5) Chronic respiratory failure with hypoxia, on home O2 therapy: Code(s): J96.11 - Chronic respiratory failure with hypoxia; Z99.81 - Dependence on supplemental oxygen Status: Acute Assessment and Plan: Stable on 1.5-2L/min. Continue the same (6) Chronic pain disorder: Code(s): G89.4 - Chronic pain syndrome Status: Acute Assessment and Plan: Pain controlled. Continue Tramadol. (7) Severe protein-calorie malnutrition: Code(s): E43 - Unspecified severe protein-calorie malnutrition Status: Acute Assessment and Plan: The family reports patient has had a 30 lb weight loss over the last month.?Patient has had failure to thrive, weight loss and is mostly bedbound.? Dietary supplements ordered (8) Subtherapeutic international normalized ratio (INR): Code(s): R79.1 - Abnormal coagulation profile Status: Acute Assessment and Plan: Patient had a subtherapeutic INR.? According to the shelter records patient is only getting 1 mg of Coumadin daily.? She was given 3 mg of Coumadin daily.? The patient does have an IVC filter in place. INR climbed to 2.0 her Coumadin was decreased to 1mg daily. 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 KCl 80mEq added back but potassium still low so will add back the rest. Replace potassium. Repeat levels later today. Plan According to ER report, the family may be willing to consider palliative measures and if the patient is not improving with conservative measures may consider transitioning to hospice care. Code status - DNR Subjective Date/time seen: 06/13/23 15:45 Interval history: 82yo female with chronic pain syndrome, CH
[2023-06-13] MEDS: ONDANSETRON INJ 4 MG/2 ML VIAL IV PUSH (15:57)
[2023-06-13] MEDS: POTASSIUM CHLORIDE 20 MEQ PACKET (FOR LIQUID) 40 MEQ PO ×2 (15:59→23:02)
[2023-06-13] MEDS: WARFARIN (*PBKC) 1 MG TABLET PO (16:53)
[2023-06-13] MEDS: MAGNESIUM SULF 2 GM/WATER 50ML 2 GM/50 ML BAG IVPB (16:57)
[2023-06-13] MEDS: SODIUM CHLORIDE 1 GM TABLET PO (17:46)
[2023-06-13] MEDS: traZODone HCL 50 MG TABLET PO (20:27)
[2023-06-13] MEDS: ATORVASTATIN 40 MG TABLET PO (20:27)
[2023-06-13] MEDS: MELATONIN 5 MG TABLET PO (20:27)
[2023-06-13 21:41] LABS: Anion Gap 5 mmol/L (8-16); Blood Urea Nitrogen 16 mg/dL (7-17); Calcium 8.1 mg/dL (8.4-10.2); Carbon Dioxide 32 mmol/L (22-30); Chloride 86 mmol/L (98-107); Estimated CRCL calculation 59 ml/min; Estimated Glomerular Filt Rate > 60; Glucose 163 mg/dL (65-110); Potassium 2.8 mmol/L (3.4-5.0); Sodium 123 mmol/L (137-145)
[2023-06-13] MEDS: POTASSIUM CHLORIDE INJ 40 MEQ in SODIUM CHLORIDE 0.9% IV 500 ML 130 MEQ IVPB (23:01)
[2023-06-13] MEDS: SODIUM CHLORIDE 0.9% IV 500 ML 50 ML (23:10)
[2023-06-14] MEDS: traMADol HCL (*CRX) 50 MG TABLET 100 MG PO ×2 (05:01→14:09)
[2023-06-14 06:00] VITALS: BP 137/57; PULSE 72; RESP 14; TEMP 36.2; O2SAT 100
[2023-06-14 06:44] LABS: Anion Gap 6 mmol/L (8-16); Blood Urea Nitrogen 14 mg/dL (7-17); Calcium 8.5 mg/dL (8.4-10.2); Carbon Dioxide 34 mmol/L (22-30); Chloride 88 mmol/L (98-107); Estimated CRCL calculation 52 ml/min; Estimated Glomerular Filt Rate > 60; Glucose 120 mg/dL (65-110); Magnesium 1.9 mg/dL (1.6-2.3); Potassium 2.9 mmol/L (3.4-5.0); Prothrombin Time 24.2 Seconds (11.1-14.7); Sodium 128 mmol/L (137-145)
[2023-06-14 08:10] VITALS: O2SAT 98
[2023-06-14 08:15] VITALS: O2SAT 97
[2023-06-14] MEDS: FUROSEMIDE 20 MG TABLET 60 MG PO (08:16)
[2023-06-14 08:17] VITALS: PULSE 72
[2023-06-14] MEDS: METOPROLOL TARTRATE 12.5 MG TABLET PO (08:17)
[2023-06-14] MEDS: SODIUM CHLORIDE 1 GM TABLET PO (08:17)
[2023-06-14] MEDS: POTASSIUM CHLORIDE 20 MEQ ER TABLET 80 MEQ PO (08:17)
[2023-06-14] MEDS: MIRABEGRON 50 MG ER TABLET PO (08:18)
[2023-06-14] MEDS: MULTIVITAMINS THERAPEUTIC TAB (*BKC) 1 TABLET PO (08:18)
[2023-06-14] MEDS: MAGNESIUM OXIDE 400 MG TABLET PO (08:18)
[2023-06-14] MEDS: POTASSIUM CHLORIDE 20 MEQ PACKET (FOR LIQUID) 40 MEQ PO (08:18)
[2023-06-14] MEDS: PANTOPRAZOLE 40 MG TABLET PO (08:18)
[2023-06-14] MEDS: metOLazone 5 MG TABLET PO (08:18)
[2023-06-14] MEDS: SERTRALINE HCL 25 MG TABLET PO (08:18)
[2023-06-14] MEDS: ARTIFICIAL TEARS OPHTH SOLN 15 ML BOTTLE 1 DROP EACH EYE (08:19)
[2023-06-14] MEDS: SILVERGEL (ELTA) 45 ML 1 APPLIC TOPICAL (08:20)
[2023-06-14] MEDS: AMOXICILLIN/CLAVULANATE K 875-125 MG TAB 1 TABLET PO (08:20)
[2023-06-14] MEDS: CHOLECALCIFEROL 1,000 UNITS TABLET 1000 UNITS PO (08:28)
[2023-06-14] MEDS: amLODIPine BESYLATE 5 MG TABLET PO (08:28)
[2023-06-14] MEDS: LORATADINE 10 MG TABLET PO (08:29)
[2023-06-14 08:30] VITALS: O2SAT 98
[2023-06-14] MEDS: MAGNESIUM SULF 2 GM/WATER 50ML 2 GM/50 ML BAG IVPB (10:07)
[2023-06-14 10:46] LABS: Potassium 3.7 mmol/L (3.4-5.0)
[2023-06-14] MEDS: NEOMYCIN/POLYMYXIN/BACITRACIN OINTMENT PACKET 1 PACKET (11:35)
[2023-06-14] MEDS: hydrOXYzine HCL 25 MG TABLET PO (11:43)
--- NOTE | 2023-06-14 13:32 | PM.DS ---
DS: Admitting Diagnosis Discharge Date 06/14/23 Admitting Diagnosis UTI, back pain DS: Discharge Diagnosis Discharge Diagnosis (1) Decubitus ulcer, unstageable with infection: Code(s): L89.95 - Pressure ulcer of unspecified site, unstageable; L08.9 - Local infection of the skin and subcutaneous tissue, unspecified Status: Acute (2) UTI (urinary tract infection): Qualifiers: Hematuria presence: without hematuria Urinary tract infection type: acute cystitis Qualified Code(s): N30.00 - Acute cystitis without hematuria Code(s): N39.0 - Urinary tract infection, site not specified Status: Acute (3) Hyponatremia: Code(s): E87.1 - Hypo-osmolality and hyponatremia Status: Acute (4) Hypomagnesemia: Code(s): E83.42 - Hypomagnesemia Status: Acute (5) Chronic respiratory failure with hypoxia, on home O2 therapy: Code(s): J96.11 - Chronic respiratory failure with hypoxia; Z99.81 - Dependence on supplemental oxygen Status: Acute (6) Chronic pain disorder: Code(s): G89.4 - Chronic pain syndrome Status: Acute (7) Severe protein-calorie malnutrition: Code(s): E43 - Unspecified severe protein-calorie malnutrition Status: Acute (8) Subtherapeutic international normalized ratio (INR): Code(s): R79.1 - Abnormal coagulation profile Status: Acute (9) 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 Please see H&P for details. Hospital Course: The patient has a known decubitus ulcer. There was concern it might be infected with a foul smell. Wound cultures growing mixed organisms? Blood cultures NGTD.? WBC was normal. General surgery consulted and appreciate their input. They did not feel the wound was infected or that it needed surgical debridement.? We continued local wound care management.?We offloaded pressure on the ulcer with Air mattress. The patient with known E coli UTI.? Sensitivities were not known for the organism.? Zosyn started.? BCx NGTD. UCx here growing Ecoli that is pansensitive. Narrowed abx. The patient has hyponatremia at 126.? The patient's labs at the assisted also demonstrated hyponatremia with sodium 129.?With IV fluid hydration, sodium was better but then worsened. IV fluids stopped. Lasix resumed. Mimi 44 but was on diuretics. Sodium level improved back on her diuretics. Patient does have hypomagnesemia chronically.? She received magnesium replacement. Patient with chronic respiratory failure with hypoxia, on home O2 therapy which we continued at 1.5-2L/min. The family reports patient has had a 30 lb weight loss over the last month.?Patient has had failure to thrive, weight loss and is mostly bedbound.? Dietary supplements added. Patient had a subtherapeutic INR.? According to the assisted records, patient is only getting 1 mg of Coumadin daily.? She was given 3 mg of Coumadin daily.? The patient does have an IVC filter in place. INR climbed to 2.0 and her Coumadin was decreased to 1mg daily. Patient has chronic hypokalemia and takes 120mEq of potassium daily. KCl 80mEq added back but potassium still low so we added back the rest. Potassium better now. She overall did well and was able to be discharged back to the assisted on 06/14/23. Discussed with patietn and family in the room with patient permission. Status at Discharge Cognitive/behavioral status at discharge: stable Time Spent with Patient Time attestation: Total time spent providing and/or coordinating discharge services: 38 minutes Time spent:
[2023-06-14] MEDS: POTASSIUM CHLORIDE 20 MEQ ER TABLET 40 MEQ PO (14:09)
[2023-06-14 14:10] VITALS: BP 110/56; PULSE 72; RESP 18; TEMP 36.8; O2SAT 93
== END 2023-06-14 16:20 | DRG 689 ==
LOC: ANHED 19:32 → ANH3MEDSUR 06-11 00:49
PROVIDERS: Admitting Provider Internal Medicine; Emergency Provider Physician Assistant; PCP Internal Medicine; Visit Provider Internal Medicine
DX: N39.0 Urinary tract infection, site not specified (principal); E43 Unspecified severe protein-calorie malnutrition; E87.1 Hypo-osmolality and hyponatremia; J96.11 Chronic respiratory failure with hypoxia; B96.20 Unspecified Escherichia coli [E. coli] as the cause of diseases classified elsewhere; L89.320 Pressure ulcer of left buttock, unstageable; E83.42 Hypomagnesemia; G89.4 Chronic pain syndrome; R79.1 Abnormal coagulation profile; E87.6 Hypokalemia; Z66 Do not resuscitate; I11.0 Hypertensive heart disease with heart failure; I50.9 Heart failure, unspecified; F41.9 Anxiety disorder, unspecified; R62.7 Adult failure to thrive; K21.9 Gastro-esophageal reflux disease without esophagitis; G47.33 Obstructive sleep apnea (adult) (pediatric); E78.5 Hyperlipidemia, unspecified; E86.0 Dehydration; Z96.653 Presence of artificial knee joint, bilateral; E66.9 Obesity, unspecified; Z68.38 Body mass index [BMI] 38.0-38.9, adult; Z99.81 Dependence on supplemental oxygen; Z79.01 Long term (current) use of anticoagulants; Z90.49 Acquired absence of other specified parts of digestive tract; Z86.718 Personal history of other venous thrombosis and embolism
CPT/HCPCS: 36415; 36569; 70450; 71045; 74176; 80048; 80053; 81001; 82570; 83605; 83690; 83735; 84132; 84300; 84484; 85025; 85027; 85610; 87040; 87070; 87077; 87086; 87186; 87205; 93005; 96374; 96375; 96376; 99285; A9270; C1751; G0378; J2270; J2405; J2543; J3370; J3475; J3480; J7030; J7040